=== PATIENT | female | born 2005 | race Caucasian/White ===

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

== ENCOUNTER 2024-05-14 13:15 | Emergency (ER) | payer OTHER, SELFPAY ==
[2024-05-14 13:16] VITALS: BP 131/83; PULSE 69; RESP 18; TEMP 36.1; O2SAT 99; BMI 21.7
--- NOTE | 2024-05-14 15:17 | EKG12_ITS ---
Test Reason : Blood Pressure : / mmHG Vent. Rate : 054 BPM Atrial Rate : 054 BPM P-R Int : 132 ms QRS Dur : 086 ms QT Int : 444 ms P-R-T Axes : 026 070 056 degrees QTc Int : 421 ms Sinus bradycardia Possible Left atrial enlargement Borderline ECG Confirmed by Negrito Shipman ([id number]), fan mail editor ELADIA CALI ([id number]) on 05/15/2024 9:18:05 AM Referred By: Confirmed By:Negrito Shipman
--- NOTE | 2024-05-14 15:17 | US_ITS ---
STUDY: ULTRASOUND OF THE FEMALE PELVIS - LIMITED REASON FOR EXAM: Female, 19 years old abnormal bleeding and pain TECHNIQUE: Transabdominal and transvaginal TECHNICAL QUALITY: Adequate. COMPARISON: None. FINDINGS: The uterus is anteverted and is in a midline position. The uterus measures 7.1 x 4 x 3.4 cm. Normal uterine cervix. The endometrium measures 7 mm in thickness, and is heterogeneous. There is no demonstrated endometrial mass. There is no demonstrated myometrial mass. The right ovary measures 5 x 3.9 x 2.7 cm. There is a complex ovarian cyst with debris layering along the dependent wall of the cyst or solid mural nodule along the dependent portion of the cyst measuring approximately 4.1 x 3.4 x 2.5 cm . There is normal arterial and normal venous vascularity. The left ovary measures 2.3 x 2 0.9, 1.5 cm. There is no left ovarian cyst or ovarian mass. There is no visualized left adnexal mass or complex lesion. There is normal arterial and normal venous vascularity. There is mild fluid in the cul-de-sac. US/Pelvic (Non ) IMPRESSION: Complex cystic mass in the right ovary measuring 4.1 x 3.4 x 2.5 cm possibly hemorrhagic with small amount of fluid in the cul-de-sac.. Neoplasm less likely but not excluded. Recommend clinical correlation and follow-up studies Electronically Signed: Mauricio Hernandez MD at 16:45 EDT ,
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
[2024-05-14 15:42] LABS: Bacteria 0 SEEN /hpf (None Seen); Mucous, Urine 0 SEEN /hpf (<or=2+); Red Blood Cells-Urine 0 SEEN /hpf (0-5); Squamous Epithelial Cells - UA 0 SEEN /hpf (5-10); White Blood Cells 0 SEEN /hpf (0-5)
[2024-05-14 15:44] VITALS: BP 103/63; PULSE 62; RESP 16; O2SAT 98
[2024-05-14 15:49] LABS: Color, Urine Yellow (Yellow); Glucose, Dipstick Normal (Normal); Ketone-Dipstick Negative (Negative); Leukocyte Esterase-Dipstick Negative /ul (Negative); Nitrite-Dipstick Negative (Negative); Occult Blood-Urine 10 /ul (Negative); Protein-Dipstick Negative (Negative); Urine Bilirubin Dipstick Negative (Negative); Urine Clarity Clear (Clear); Urine Urobilinogen Normal (Normal)
[2024-05-14 15:52] LABS: Absolute Lymphocyte Count 2.39 X10^3/uL (0.83-4.51); Basophil# 0.02 X10^3/uL; Basophil% 0.3 % (0-1); Eosinophil# 0.09 X10^3/uL; Eosinophils% 1.3 % (0-5); Hematocrit 45.9 % (37-47); Hemoglobin 16.2 g/dL (12.0-15.0); Lymphocyte # 2.39 X10^3/ul (0.83-4.51); Lymphocyte % 34.5 % (19-41); Mean Corp Hgb Conc 35.3 g/dL (32-36); Mean Corpuscular Hgb 32.6 pg (27.0-32.0); Mean Corpuscular Volume 92.4 fL (81-99); Mean Platelet Vol. 11.4 fl (6.2-12.0); Monocyte# 0.44 X10^3/uL; Monocyte% 6.3 % (0-10); NRBC Flagged by Analyzer 0 % (0-5); Neutrophil # 3.97 X10^3/uL (2.7-7.7); Neutrophil % 57.3 % (47-70); Platelet Count 303 K/mm3 (150-450); RBC Distribution Width CV 11.9 % (11.6-14.6); Red Blood Count 4.97 M/mm3 (4.2-5.4); White Blood Count 6.9 K/mm3 (4.4-11.0)
[2024-05-14 17:00] VITALS: BP 124/69; PULSE 70; RESP 16; TEMP 36.6; O2SAT 99
[2024-05-14 17:20] LABS: Internal QC Validated? YES +Cl - CLEAR BKGD; Pregnancy, Serum, hCG Quali. NEGATIVE Negative
[2024-05-14 17:27] LABS: ALB/GLOB Ratio 1.2 RATIO (0.9-2.4); AST(SGOT) 11 U/L (15-37); Alanine Aminotransfer ALT/SGPT 17 U/L (13-56); Albumin, Serum 4.3 g/dL (3.2-5.0); Alkaline Phosphatase 86 U/L (45-117); Anion Gap 8 (5-15); BUN 9 mg/dL (7-18); BUN/Creat Ratio 11.6 RATIO (10-20); Calcium,Total 9.4 mg/dL (8.5-10.1); Chloride 105 mmol/L (98-107); Creatinine, Serum 0.78 mg/dL (0.55-1.02); EST Glomerular Filtration Rate 99 mL/min (>60); Est Glom Filt Rate - Afr Amer 120 mL/min (>60); Estimated Creatinine Clearance 123.38 ml/min; Globulin 3.5 g/dL (2.2-4.2); Glucose 91 mg/dL (74-106); Potassium 3.6 mmol/L (3.5-5.1); Protein, Total 7.8 g/dL (6.4-8.2); Sodium Level 137 mmol/L (136-145); Troponin-I HS (w/2H Reflex) < 3 pg/mL (3.0-54.0)
[2024-05-14 18:52] LABS: Reflex Troponin-HS? (from REC) Y
== END 2024-05-14 17:47 | disposition home or self-care (01) ==
PROVIDERS: Emergency Provider Emergency Medicine; PCP Registered Nurse; Visit Provider Emergency Medicine
DX: N83.201 Unspecified ovarian cyst, right side (principal); N93.9 Abnormal uterine and vaginal bleeding, unspecified; R55 Syncope and collapse
CPT/HCPCS: 76830; 76856; 80053; 81001; 84484; 84703; 85025; 93005; 99282; A4216

== ENCOUNTER → 2024-07-08 | Outpatient (CLI) | payer OTHER, SELFPAY | END | disposition home or self-care (01) | LOC: LABSPEC 16:10 | PROVIDERS: PCP Registered Nurse; Referring Provider Otolaryngology Otolaryngology/Facial Plastic Surgery; Visit Provider Otolaryngology Otolaryngology/Facial Plastic Surgery | DX: J02.9 Acute pharyngitis, unspecified (principal) | CPT/HCPCS: 87070; 87077 ==

== ENCOUNTER 2025-01-02 18:20 | Emergency (ER) | payer OTHER, SELFPAY ==
[2025-01-02 18:21] VITALS: BP 126/86; PULSE 79; RESP 18; TEMP 36.2; O2SAT 100; BMI 21.8
[2025-01-02] MEDS: diazePAM 2 MG Tablet PO (19:09)
--- NOTE | 2025-01-02 19:41 | EX.ED.DYSGE1 ---
HPI History of Present Illness Chief Complaint: Palpitations Detail of Chief Complaint: Dizziness and chest pain not palpitations Informant: patient and parent Onset/Context/Timing Onset: Days (Intermittent over the past 4 days) Context: Sudden Onset Timing: Intermittent Quality: Vertigo and anterior chest discomfort Location: Not applicable Current Severity: Gone (No vertigo presently mild anterior chest pain) Maximum Severity: Moderate Worsened by: Change in position Relieved by: Remaining still Associated Symptoms Associated Symptoms: Nausea and shortness of breath Narrative Narrative: Patient is a 19-year-old whose had intermittent anterior chest pain. Nothing precipitated the pain nor is that he make it better or worse. He also complains of intermittent vertigo as if she is spinning. She denies double vision blurred vision loss of vision. She denies trouble speech or swallowing. Denies paresthesia, anesthesia or motor weakness. She denies pain with breathing. No history of VTE. No family history of VTE. There is family history cholelithiasis maternal side, multiple members. She denies intolerance to greasy or fried foods. She denies GI symptoms. She denies leg pain, swelling discoloration Prior similar symptoms: No Recent Illness/Hospitalization: No PFSH PFSH Medical History no medical history Home Medications ?Medication ?Instructions ?Recorded ?Last Taken ?Type diazepam 2 mg tablet (Valium) 2 mg PO TID 3 days #10 tabs 01/02/25 Unknown Rx Allergy/AdvReac Type Severity Reaction Status Date / Time egg Allergy Severe NEEDS Verified 01/02/25 18:21 FOLLOW-UP influenza virus vaccine qv Allergy Rash Verified 01/02/25 18:21 2018-19 (18 yr up),rcmb (From [email or web address] [id number] (PF)) Family History no significant family his Surgical History no surgical history Social History Smoking Status: Never smoker alcohol intake: never ROS ROS ED Constitutional Constitutional ED: Denies chills, fever(s), subjective or sweats Eyes Eyes: Denies blurry vision, change in vision or diplopia ENT ENT ED: Denies ear pain, rhinorrhea or sore throat Cardiovascular Cardiovascular: Reports chest pain; Denies orthopnea, palpitations, paroxysmal nocturnal dyspnea or racing heartbeat Respiratory/Chest Respiratory/Chest: Reports dyspnea; Denies cough, dyspnea on exertion, orthopnea or paroxysmal nocturnal dyspnea Gastrointestinal Gastrointestinal: Denies nausea or vomiting Genitourinary Genitourinary ED: Denies dysuria, hematuria or urinary frequency Musculoskeletal Musculoskeletal: Denies arthralgias, back pain or myalgias Integumentary Denies rash Hematologic/Lymphatic Hematologic/Lymphatic: Reports systems reviewed and no addt'l complaints, except as documented EXAM Physical Exam Const Vital Signs: 01/02/25 18:21 01/02/25 19:55 Temperature 97.2 F L 97.2 F L Temperature Source Temporal Pulse Rate 79 71 Respiratory Rate 18 18 Blood Pressure 126/86 H 124/74 H Blood Pressure Mean 99 90 Pulse Ox 100 100 Oxygen Delivery Method Room Air Vital signs noted. Blood pressure slightly elevated. This is not significant. Positive well nourished and well developed General Appearance ED: well developed and NAD; Negative for cyanotic, diaphoretic or pallor HEENT Reports moist mucous membranes HEENT Narrative: Head is atraumatic normocephalic. Ears normal. TMs normal. Nares patent. Posterior pharynx is normal Eyes PERRL and EOMs intact bilaterally Eyes Narrative: Funduscopic exam reveals no papilledema. Venous pulsations noted bilaterally. There is no nystagmus. General Eye ED: Negative for pale conjunctiva or scleral icterus Neck no lymphadenopathy, supple and no JVD Chest Wall inspection of chest normal and palpation of chest normal Chest Narrative: Patient does have pain ovation of the chest. Resp normal respiratory effort and clear to auscultation bilaterally Cardio regular rate, regular rhythm, S1 normal heart sound, S2 normal heart sound and no murmurs GI normal to inspection, nondistended, normoactive bowel sounds, non-tender, non-distended and no masses; Negative for hepatosplenomegaly Extremity normal to inspection Extremity Narrative: There is no asymmetry, swelling, discoloration, leg vein distention, palpable cords or tenderness along the distribution of the deep venous system. Neuro oriented x3 and CN's II-XII intact bilaterally Neuro Narrative: There is no dysmetria. Romberg with eyes open and close negative. The eye askew test was negative. Jay-Hallpike maneuver was positive when patient's head was to the left. In light of this and Quoc maneuver was performed. Her symptoms resolved. When she was walking she had mild dizziness. She was treated with Valium. She was discharged with prescription for Valium. Per nurse protocol EKG was obtained which was normal. Sensorium / Orientation: alert Psych mental status grossly normal Skin no rashes or lesions noted, no wounds and skin turgor normal General Skin Exam: Negative for jaundice or pallor MDM MDM MDM Narrative Medical decision making narrative: EKG per nurse protocol normal. Patient's differential includes chest wall pain, cardiac etiology versus noncardiac etiology. Based on history and physical this is due to chest wall pain. Patient's vertigo was due to paroxysmal benign positional vertigo on the left. Will discharge with prescription for Valium. In my opinion advanced imaging is not indicated. No further testing is needed. History & Record Review Additional record(s) reviewed:: Prior ED visit (Seen May 14, 2024 for abnormal vaginal bleeding. October 2018 for allergic reaction.) Discharge Plan Triage Chief Complaint: Palpitations ED Provider: Dontrell Briggs Dx/Rx/DC Orders Clinical Impression: Anterior chest wall pain, Benign paroxysmal positional vertigo of left ear Instructions: ED Chest Pain, Noncardiac, ED BPV Vertigo Prescriptions: New diazepam [Valium] 2 mg tablet 2 mg PO TID 3 Days Qty: 10 0RF Stand Alone Forms: ED Work / School Excuse Primary Care Provider: Melida Noble NP Referrals: Melida Noble NP, [employer]ICAL [employer]IST[employer]IST[employer] [Primary Care Provider] - Print Language: Czech Disposition Disposition: Home, Self Care Discharge Date/Time: 01/02/25 20:03
--- NOTE | 2025-01-02 19:51 | EKG12_ITS ---
Test Reason : PALPITATIONS/CP Blood Pressure : */* mmHG Vent. Rate : 78 BPM Atrial Rate : 78 BPM P-R Int : 130 ms QRS Dur : 82 ms QT Int : 372 ms P-R-T Axes : 21 72 26 degrees QTcB Int : 424 ms Normal sinus rhythm with sinus arrhythmia Normal ECG Confirmed by MEGHANA PRADHAN, VISHNU ([id number]), editor sound OSORIO CLAUDIO ([id number]) on 01/06/2025 8:10:00 AM Referred By: Dontrell Briggs Confirmed By: VISHNU KOWALSKI MD
[2025-01-02 19:55] VITALS: BP 124/74; PULSE 71; RESP 18; TEMP 36.2; O2SAT 100
== END 2025-01-02 20:03 | disposition home or self-care (01) ==
LOC: ED 18:44
PROVIDERS: Emergency Provider Emergency Medicine; PCP Registered Nurse; Referring Provider Emergency Medicine; Visit Provider Emergency Medicine
DX: R07.89 Other chest pain (principal); R06.02 Shortness of breath; R11.0 Nausea; H81.12 Benign paroxysmal vertigo, left ear
CPT/HCPCS: 93005; 99282; A4216